=== PATIENT | male | born 1985 | race Caucasian/White ===

== ENCOUNTER 2018-09-24 14:23 | Emergency (ER) | payer MEDICAID ==
[~2018-09-24] VITALS: Ht 192.4 cm; Wt 83.2 kg
[2018-09-24] MEDS ORDERED: CHOL10002 PO (15:45)
[2018-09-24] MEDS ORDERED: PALI234D IM (15:45)
[2018-09-24] MEDS ORDERED: BENZ1TAB7 PO (15:45)
[2018-09-24 15:46] LABS: BASOPHILS % (AUTO) 0.4 % (0-1); EOSINOPHILS # (AUTO) 0.2 X10'3 (0-0.9); EOSINOPHILS % (AUTO) 1.6 % (0-6); HEMATOCRIT 49.6 % (42.0-52.0); HEMOGLOBIN 16.5 g/dl (14.0-17.9); LYMPHOCYTES # (AUTO) 1.5 X10'3 (1.1-4.8); LYMPHOCYTES % (AUTO) 14.9 % (21-51); MEAN CORPUSCULAR HEMOGLOBIN 29.5 PG (27.0-31.0); MEAN CORPUSCULAR HGB CONC 33.2 % (33.0-36.5); MEAN CORPUSCULAR VOLUME 88.9 FL (78-98); MEAN PLATELET VOLUME 7.7 FL (7.4-10.4); MONOCYTES # (AUTO) 0.7 X10'3 (0-0.9); MONOCYTES % (AUTO) 7.4 % (2-12); NEUTROPHILS # (AUTO) 7.4 X10'3 (1.8-7.7); NEUTROPHILS % (AUTO) 75.7 % (42-75); PLATELET COUNT 187 X10'3 (140-440); RED BLOOD COUNT 5.57 X10'6 (4.70-6.10); RED CELL DISTRIBUTION WIDTH 14.2 % (11.5-14.5); WHITE BLOOD COUNT 9.8 X10'3 (4.5-11.0)
[2018-09-24 15:49] LABS: CLARITY,URINE CLEAR (Clear); COLOR,URINE STRAW (Yellow); GLUCOSE, URINE NEGATIVE (Neg); KETONES,URINE NEGATIVE (Neg); LEUKOCYTE ESTERASE ,URINE NEGATIVE (Neg); NITRITES, URINE NEGATIVE (Neg); OCCULT BLOOD,URINE NEGATIVE (Neg); PROTEIN,URINE NEGATIVE (Neg); UROBILINOGEN,URINE 0.2 E.U/dL (0.2-1.0)
[2018-09-24 15:51] LABS: UA COLLECTION TYPE CLN CATCH MIDSTREAM
[2018-09-24 16:08] LABS: URINE AMPHETAMINE SCREEN NEGATIVE (Neg); URINE BARBITUATE SCREEN NEGATIVE (Neg); URINE BENZODIAZEPINES SCREEN NEGATIVE (Neg); URINE CANNABINOID SCREEN NEGATIVE (Neg); URINE COCAINE SCREEN NEGATIVE (Neg); URINE METHADONE SCREEN NEGATIVE (Neg); URINE OPIATE SCREEN NEGATIVE (Neg); URINE PHENCYCLIDINE SCREEN NEGATIVE (Neg)
[2018-09-24 16:10] LABS: ALANINE AMINOTRANSFERASE 23 U/L (12-78); ALBUMIN 4.3 G/DL (3.4-5.0); ALBUMIN/GLOBULIN RATIO 1.2 (1.1-1.5); ALKALINE PHOSPHATASE 86 IU/L (46-116); ANION GAP 10 (8-16); ASPARTATE AMINO TRANSFERASE 18 U/L (10-37); BILIRUBIN,TOTAL 0.4 MG/DL (0.1-1.0); BLOOD UREA NITROGEN 19 MG/DL (7-18); BUN/CREATININE RATIO 22.9 (5.4-32.0); CALCIUM 9.2 MG/DL (8.5-10.1); CHLORIDE 101 MMOL/L (99-107); CREATININE 0.83 MG/DL (0.60-1.10); GLUCOSE 94 MG/DL (70-104); POTASSIUM 3.8 MMOL/L (3.5-5.1); SODIUM 140 MMOL/L (135-145); TOTAL CARBON DIOXIDE 29.2 MMOL/L (24-32); eGFR > 90 ML/MIN
[2018-09-24] MEDS ORDERED: LORA1TAB PO (16:13)
[2018-09-24] MEDS ORDERED: MAG355OR18 PO (16:13)
[2018-09-24] MEDS ORDERED: BISM262O PO (16:13)
[2018-09-24] MEDS ORDERED: HALO10TA13 PO (16:13)
[2018-09-24] MEDS ORDERED: MAGN400O6 PO (16:13)
[2018-09-24] MEDS ORDERED: ACET-2119 PO (16:13)
[2018-09-24 16:14] LABS: ETHANOL < 0.010 GM/DL (0.0-0.010)
[2018-09-24] MEDS ORDERED: LORazepam 1 MG tablet PO PRN (16:35)
[2018-09-24] MEDS: acetaminophen 325mg tablet PO SCH ×2 (17:00→20:46)
[2018-09-24] MEDS ORDERED: ACET-895 PO (17:33)
[2018-09-24] MEDS: benztropine 1mg tablet PO SCH (20:47)
[2018-09-24] MEDS: haloperidol 5mg tablet PO SCH (20:47)
[2018-09-24] MEDS ORDERED: QUEtiapine 25mg tablet PO ONE (22:50)
[2018-09-25 06:01] VITALS: BP 98/65
[2018-09-25] MEDS: acetaminophen 325mg tablet PO SCH ×2 (08:00→13:00)
[2018-09-25] MEDS ORDERED: vitamin D (cholecalciferol) 1,000 unit tablet PO SCH (08:00)
[2018-09-25] MEDS: benztropine 1mg tablet PO SCH (08:38)
[2018-09-25] MEDS: haloperidol 5mg tablet PO SCH (08:38)
[2018-10-24] MEDS ORDERED: paliperidone palmitate inj 234 MG/1.5 ML SYRINGE IM SCH (08:00)
== END 2018-09-25 15:30 ==
LOC: ER 14:24
DX: F79 Unspecified intellectual disabilities (principal); Z72.53 High risk bisexual behavior; F41.9 Anxiety disorder, unspecified; F32.9 Major depressive disorder, single episode, unspecified; F28 Other psychotic disorder not due to a substance or known physiological condition; Z88.8 Allergy status to other drugs, medicaments and biological substances; Z79.899 Other long term (current) drug therapy
CPT/HCPCS: 36415; 80053; 80305; 80320; 81003; 84443; 85025; 99285

== ENCOUNTER 2018-11-10 11:35 | Emergency (ER) | payer MEDICAID ==
[~2018-11-10] VITALS: Ht 190.5 cm; Wt 90.0 kg
[~2018-11-10 11:35] MED LIST: ACET-895 PO; BENZ1TAB7 PO; BISM262O PO; CHOL10002 PO; HALO10TA13 PO; LORA1TAB PO; MAG355OR18 PO; MAGN400O6 PO; PALI234D IM
[2018-11-10 11:43] VITALS: BP 133/73
[2018-11-10 12:33] LABS: BASOPHILS % (AUTO) 0.1 % (0-1); EOSINOPHILS # (AUTO) 0.1 X10'3 (0-0.9); EOSINOPHILS % (AUTO) 1.5 % (0-6); HEMATOCRIT 47.7 % (42.0-52.0); HEMOGLOBIN 16.1 g/dl (14.0-17.9); LYMPHOCYTES # (AUTO) 1.4 X10'3 (1.1-4.8); LYMPHOCYTES % (AUTO) 19.3 % (21-51); MEAN CORPUSCULAR HEMOGLOBIN 29.8 PG (27.0-31.0); MEAN CORPUSCULAR HGB CONC 33.8 % (33.0-36.5); MEAN CORPUSCULAR VOLUME 88.4 FL (78-98); MEAN PLATELET VOLUME 7.5 FL (7.4-10.4); MONOCYTES # (AUTO) 0.7 X10'3 (0-0.9); MONOCYTES % (AUTO) 9.7 % (2-12); NEUTROPHILS # (AUTO) 5.2 X10'3 (1.8-7.7); NEUTROPHILS % (AUTO) 69.4 % (42-75); PLATELET COUNT 180 X10'3 (140-440); RED CELL DISTRIBUTION WIDTH 14.5 % (11.5-14.5); WHITE BLOOD COUNT 7.5 X10'3 (4.5-11.0)
[2018-11-10 12:42] LABS: CLARITY,URINE CLEAR (Clear); COLOR,URINE STRAW (Yellow); GLUCOSE, URINE NEGATIVE (Neg); KETONES,URINE NEGATIVE (Neg); LEUKOCYTE ESTERASE ,URINE NEGATIVE (Neg); NITRITES, URINE NEGATIVE (Neg); OCCULT BLOOD,URINE NEGATIVE (Neg); PROTEIN,URINE NEGATIVE (Neg); UROBILINOGEN,URINE 0.2 E.U/dL (0.2-1.0)
[2018-11-10 12:43] LABS: UA COLLECTION TYPE CLN CATCH MIDSTREAM
[2018-11-10 12:51] LABS: ALANINE AMINOTRANSFERASE 35 U/L (12-78); ALBUMIN 4.3 G/DL (3.4-5.0); ALBUMIN/GLOBULIN RATIO 1.2 (1.1-1.5); ALKALINE PHOSPHATASE 80 IU/L (46-116); ANION GAP 11 (8-16); ASPARTATE AMINO TRANSFERASE 53 U/L (10-37); BILIRUBIN,TOTAL 0.5 MG/DL (0.1-1.0); BLOOD UREA NITROGEN 14 MG/DL (7-18); BUN/CREATININE RATIO 19.4 (5.4-32.0); CHLORIDE 101 MMOL/L (99-107); CREATININE 0.72 MG/DL (0.60-1.10); ETHANOL < 0.010 GM/DL (0.0-0.010); GLUCOSE 78 MG/DL (70-104); POTASSIUM 3.9 MMOL/L (3.5-5.1); SODIUM 140 MMOL/L (135-145); TOTAL CARBON DIOXIDE 27.7 MMOL/L (24-32); eGFR > 90 ML/MIN
[2018-11-10 12:58] LABS: URINE AMPHETAMINE SCREEN NEGATIVE (Neg); URINE BARBITUATE SCREEN NEGATIVE (Neg); URINE BENZODIAZEPINES SCREEN NEGATIVE (Neg); URINE CANNABINOID SCREEN POSITIVE (Neg); URINE COCAINE SCREEN NEGATIVE (Neg); URINE METHADONE SCREEN NEGATIVE (Neg); URINE OPIATE SCREEN NEGATIVE (Neg); URINE PHENCYCLIDINE SCREEN NEGATIVE (Neg)
--- NOTE | 2018-11-10 14:15 | NUR ---
[facility] changed into green scrubs. VS stable, pt has no belongings he states he is hungry will continue to monitor
--- NOTE | 2018-11-10 15:30 | NUR ---
recieved report from DINORA Willard
[2018-11-10] MEDS ORDERED: paliperidone palmitate inj 234 MG/1.5 ML SYRINGE IM SCH (15:35)
[2018-11-10] MEDS ORDERED: LORazepam 1 MG tablet PO PRN (15:35)
[2018-11-10] MEDS ORDERED: acetaminophen 325mg tablet PO PRN (16:00)
--- NOTE | 2018-11-10 16:20 | NUR ---
pt ate a sandwhich and a few jellos, pt resting quietly.
--- NOTE | 2018-11-10 17:23 | NUR ---
pt being transfered to [facility] in [place] by Gene from [facility] pt has all belongings with him and security is escorting the pt to the car.
--- NOTE | 2018-11-10 17:26 | NUR ---
raymundo was called benjamín answered the phone they are aware pt is on his way
[2018-11-10] MEDS ORDERED: haloperidol 5mg tablet PO SCH (20:00)
[2018-11-10] MEDS ORDERED: benztropine 1mg tablet PO SCH (20:00)
[2018-11-11] MEDS ORDERED: vitamin D (cholecalciferol) 1,000 unit tablet PO SCH (08:00)
[2018-11-21] MEDS ORDERED: paliperidone palmitate inj 234 MG/1.5 ML SYRINGE IM SCH (08:00)
== END 2018-11-10 17:30 ==
LOC: ER 11:36
DX: F91.1 Conduct disorder, childhood-onset type (principal); F79 Unspecified intellectual disabilities; F41.9 Anxiety disorder, unspecified; F32.9 Major depressive disorder, single episode, unspecified; F29 Unspecified psychosis not due to a substance or known physiological condition; Z88.8 Allergy status to other drugs, medicaments and biological substances; Z79.899 Other long term (current) drug therapy
CPT/HCPCS: 36415; 80053; 80305; 80320; 81003; 85025; 99285